=== PATIENT | female | born 1975 | race Caucasian/White ===

== ENCOUNTER → 2016-03-24 | Day surgery (SDC) | payer OTHER ==
[2016-03-23 10:59] VITALS: BMI 35.9
[~2016-03-24] MED LIST: BUPIVACAINE 0.5% 30 ML VIAL INF ONE; DEXAMETHASONE 4 MG/ML VIAL INF ONE; DEXAMETHASONE 4 MG/ML VIAL IV PRN; DIAZEPAM 5 MG TAB PO PRN; FENTANYL 100 MCG/2 ML VIAL IV PRN; FENTANYL 100 MCG/2 ML VIAL ONE; HYDROCODONE 5 MG/ACETAMIN 325 MG TAB PO PRN; KETOROLAC TROMETH 30 MG/ML VIAL IV PRN; LABETALOL 20 MG/4 ML SYRINGE IV PRN; LIDOCAINE 1% 30 ML VIAL (PRESERVATIVE FREE) INF ONE; LR 1,000 ML IV ONE; LR 1,000 ML IV SCH; MIDAZOLAM 2 MG/2 ML VIAL ONE; NS 1,000 ML IV SCH; NS 250 ML IV SCH; ONDANSETRON HCL 4 MG/2 ML VIAL IV PRN; PROPOFOL 200 MG/20 ML VIAL IV ONE; SCOPOLAMINE TRANSDERMAL PATCH TOP PRN; hydrALAZINE 20 MG/ML VIAL IV PRN
--- NOTE | 2016-03-24 09:30 | SC.ANESEVA ---
Anesthesia Eval & Plan ([facility]) - Providers Stated Procedure: Instep Plantar Fasciotomy Left Foot Surgeon:: Gianluca Olivas - Medications/Allergies Allergies: Allergies aripiprazole Allergy (Verified 03/23/16 10:10) See Comments palpitations Home Medications: Home Medication List Trazodone HCl 100 mg PO QHS 03/23/16 [History] Venlafaxine HCl ER [Effexor Xr] 150 mg PO DAILY 03/23/16 [History] Current Medication List: Reviewed - Focused Physical Exam NPO since: after Midnight Mallampati: Class II Thyromental Distance: Greater than 3 Neck: Full Range of Motion Dental: Normal - no significant findings Cardiovascular/Chest: Normal (RRR no mumurs or rubs.) Respiratory: Lungs clear. 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) Allergies Allergy/AdvReac Type Severity Reaction Status Date / Time aripiprazole Allergy See Verified 03/23/16 10:10 Comments Home Medications Medication Instructions Recorded Last Taken Type Trazodone HCl 100 mg PO QHS 03/23/16 03/23/16 History Venlafaxine HCl ER [Effexor Xr] 150 mg PO DAILY 03/23/16 03/23/16 History Height and Weight Patient's height 5 ft 5 in Patient's weight 97.976 kg Weight (Calculated Kilograms) 97.976 BMI 35.9 Vital Signs Temperature 97.9 F 03/24/16 07:42 Pulse Rate 79 03/24/16 07:42 Respiratory Rate 18 03/24/16 07:42 Blood Pressure 126/74 03/24/16 07:42 Pulse Oxygen Saturation 100 03/24/16 07:42 - Anesthetic Plan Anesthesia Type: MAC ASA Class: 2 - Focused Review of Systems Neurological/Musculoskeletal: Yes: Hx Back Pain Smoking Status: Current some day smoker Surgical History: Yes: Cholecystectomy Comment Only: Knee (Right Knee surgery in 1996) Other Surgical History: 2 C-sections
[2016-03-24 09:44] VITALS: TEMP 97.8
--- NOTE | 2016-03-24 09:44 | HIMOPRPT ---
DATE OF PROCEDURE: 03/24/16 PREOPERATIVE DIAGNOSES: Chronic proximal Plantar Fascitis left foot POSTOPERATIVE DIAGNOSES: Same PROCEDURE: Left foot instep Plantar Fasciotomy FINDINGS: Consistent with above diagnosis SPECIMENS REMOVED: None. ESTIMATED BLOOD LOSS: Minimal ANESTHESIA: MAC with additioanl 8cc 1% Lidocaine plain. COMPLICATIONS: None. IMPLANTS: None DRAINS: None SURGEON: Gianluca Olivas DPM OPERATION IN DETAIL: Patient was brought into the operating room and placed on the operating room table in supine position in good anatomical alignment. A formal time out was performed. Once vital signs were noted to be stable and sufficient sedation had been achieved the left foot plantar aspect left heel was anesthetized with 8cc of 2% lidocaine plain at the instep. A well padded ankle tourniquet was placed around the left ankle. The foot was prepped and draped in the usual sterile manner. Esmarch tourniquet was used to exsanguinate blood from the foot and the tourniquet was inflated to 250 mmHg. Attention was then directed to the area between the highest point of the instep and the plantar calcaneal tubercle where a 3 cm horizontal incision was made. The incision was deepened via sharp and blunt dissection. The incision was deepened to the plantar fascia which was readily identified below subcutaneous tissue. Then using a #15 blade the medial and central bands were released. The plantar fascia was noted to more thickend than normaly seen. Intrinsic musculature was easily identified above the plantar fascia. The lateral band of the plantar fascia was noted to be intact. This allowed me to flush the wound with copious amounts of normal saline. The incision was then reapproximated using 4-0 nylon. An additional 4cc of 0.5% Marcaine plain and 1cc of 4mg Decadron was injected to the surgical site for its long acting anesthetic and anti inflammatory effect. The surgical site was dressed with Betadine Adaptic dry sterile gauze Darrius and Coban. The tourniquet was deflated. Sharp and sponge count was noted to be correct. Capillary refill time on the toes of the foot were noted to be instantaneous. A below the knee fiberglass cast was applied to the lower extremity. Patient tolerated anesthesia and procedure well and was transported to PACU in satisfactory condition oral and written postoperative instructions were given and the patient has an appointment in my office for follow-up in 5 days.
--- NOTE | 2016-03-24 09:45 | PCM.DCS92 ---
Discharge Outpatient Note Additional Instructions: Instructions: 03/24/16 * Go directly home and keep your feet elevated on the way * Apply an ice bag covered with a towel just above; but not on, the operative site for 20 minutes on and 20 minutes off * Limited swelling is expected. Occasionally, the skin may take on a bruised appearance.- This no cause for alarm. * Elevate your feet six inches above your hip level by supporting feet and legs with pillow * Bedding may be kept from irritating the surgical site by use of a cardboard box to cradle the covers over the feet. * Exercise your legs frequently by bending your knees to stimulate circulation and speed healing * Have prescriptions filled and take medications as directed. If medication causes stomach upset, headache, rash or other abnormal reactions, discontinue use and CALL THE DOCTOR! * Curtail the use of alcoholic beverages and smoking * Get plenty of rest with the foot elevated. Drink plenty of fluids and eat regular well-balanced meals. * Follow up with office as scheduled * Call with any questions prior to appointment or if wound is red, painful or draining pus [phone].(There is a physician section laborer 24 hrs a day) Wound Care: * Keep wound clean and dry DO NOT remove the bandages or inspect the wound.( A small amount of blood on bandage is normal) Diet: Regular as tolerated Weight Bearing: [Partial] No driving until cleared by physician Follow up in office as scheduled Call the office IMMEDIATELY if: * The bandages become overly stained * your medications do not stop discomfort * You bump or injure the surgical site * You develop a fever above 100 degrees * You get dressings wet or bandage becomes loose.
--- NOTE | 2016-03-24 09:47 | SC.ANESPOS ---
Post-Anesthesia Note LOC: Fully Awake Post-Anesthesia Assessment: Awake, Returned to Baseline, Hemodynamically Stable , Pain Control Adequate Phase I & II Recovery Complete: Yes Apparent Anesthesia Complication: No : N - Vital Signs Blood Pressure: 128/71 Pulse: 76 Resp Rate: 16 O2 Sat: 97 Temp: 97.8 F
[2016-03-24 10:09] VITALS: BP 119/74; PULSE 71
== END ==
LOC: CPSC 07:20
PROVIDERS: ATTEND Podiatrist
PROC: 0J8R0ZZ Division of Left Foot Subcutaneous Tissue and Fascia, Open Approach (ICD-10-PCS; principal; 2016-03-24 08:30)
DX: M72.2 Plantar fascial fibromatosis (principal); M67.02 Short Achilles tendon (acquired), left ankle; F32.9 Major depressive disorder, single episode, unspecified; F17.200 Nicotine dependence, unspecified, uncomplicated; Z79.899 Other long term (current) drug therapy
CPT/HCPCS: 28250; J1100; J2001; J2250; J2704; J3010; J3490